=== PATIENT | male | born 1970 | race Caucasian/White ===

== ENCOUNTER 2017-04-07 19:42 | Emergency (ER) | payer OTHER ==
[~2017-04-07] VITALS: Ht 185.4 cm; Wt 123.8 kg
[~2017-04-07 19:42] MED LIST: ALBUTEROL 3 ML 33 ML INH; AMOXICILLIN500 M2 PO; BACTRIM DS 8001 TA1 PO; BIAXIN500 MG PO; CLARITIN10 MG PO; DOXYCYCLINE HY100 M3 PO; LISINOPRIL5 MG PO; MEDROL DOSEPAK4 MG PO; Motrin,Rufen800 MG PO; PREDNISONE10 MG PO; PREDNISONE20 M1 PO; PROCARDIA10 MG PO; PROVENTIL0.09 MG/AC IH; PROZAC10 M1 PO; ROBITUSSIN DM 105 ML PO; TESSALON PERLE200 MG PO; TRAZODONE50 MG PO; VIBRAMYCIN100 MG PO; VICODIN 5/500 505 MG PO; ZITHROMAX Z PA250 MG PO; ZOLOFT50 MG PO
[2017-04-07 22:54] VITALS: BP 138/70
[2017-04-07] MEDS ORDERED: VICODIN 5-3001 EACH PO (23:25)
== END 2017-04-07 23:42 | disposition home or self-care (01) ==
LOC: ED 19:42
DX: S82.891A Other fracture of right lower leg, initial encounter for closed fracture (principal); S93.04XA Dislocation of right ankle joint, initial encounter; Z79.899 Other long term (current) drug therapy; W17.2XXA Fall into hole, initial encounter; Y93.89 Activity, other specified; Y92.89 Other specified places as the place of occurrence of the external cause; Y99.8 Other external cause status

== ENCOUNTER 2018-09-06 15:59 | Emergency (ER) | payer BC ==
[~2018-09-06] VITALS: Ht 182.8 cm; Wt 127.0 kg
--- NOTE | ~2018-09-06 | EKG ---
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
[~2018-09-06 15:59] MED LIST changes: +VICODIN 5-3001 EACH PO
[2018-09-06 16:02] VITALS: BP 125/63
[2018-09-06] MEDS ORDERED: LOSARTAN POTASS50 M1 PO (16:07)
[2018-09-06] MEDS ORDERED: FLONASE ALLERG9.9 ML NAS (17:49)
[2018-09-06] MEDS ORDERED: SEPTDS PO (17:49)
[2018-09-06] MEDS ORDERED: TESSALON PERLE100 M1 PO (17:49)
== END 2018-09-06 18:01 | disposition home or self-care (01) ==
LOC: ED 15:59
DX: J01.90 Acute sinusitis, unspecified (principal); J40 Bronchitis, not specified as acute or chronic; Z79.899 Other long term (current) drug therapy